=== PATIENT | female | born 1985 | race Caucasian/White ===

== ENCOUNTER 2022-05-22 21:40 | Emergency (ER) | payer OTHER, BC ==
[2022-05-22 22:13] VITALS: BP 128/78; PULSE 73; RESP 18; TEMP 98.7; BMI 32.8
== END 2022-05-22 22:16 | disposition home or self-care (01) ==
LOC: FER 21:40
DX: S61.230A Puncture wound without foreign body of right index finger without damage to nail, initial encounter (principal); W46.1XXA Contact with contaminated hypodermic needle, initial encounter
CPT/HCPCS: 99281-25

== ENCOUNTER 2022-09-22 02:19 | Emergency (ER) | payer BC, OTHER ==
[2022-09-22] MEDS ORDERED: ONDANSETRON 4 MG/2 ML VIAL IVPB ONE (02:22)
[2022-09-22] MEDS ORDERED: SODIUM CHLORIDE 0.9% 500 ML INFUS.BAG IV ONE (02:22)
[2022-09-22 02:23] VITALS: BP 136/99; PULSE 121; RESP 18; TEMP 98.9; BMI 35.4
[2022-09-22] MEDS ORDERED: ONDANSETRON 4 MG/2 ML VIAL ONE (02:39)
== END 2022-09-22 05:45 | disposition home or self-care (01) ==
LOC: FER 02:19
PROC: 3E033GC Introduction of Other Therapeutic Substance into Peripheral Vein, Percutaneous Approach (ICD-10-PCS; principal; 2022-09-22)
DX: A09 Infectious gastroenteritis and colitis, unspecified (principal)
CPT/HCPCS: 0241U-QW; 99284-25

== ENCOUNTER 2023-11-08 21:20 | Emergency (ER) | payer BC ==
[2023-11-08 21:38] VITALS: TEMP 98; BMI 30.9
[2023-11-08] MEDS ORDERED: FAMOTIDINE 20 MG/50 ML IVPB 20 MG/50 ML MG IVPB ONE (21:38)
[2023-11-08] MEDS ORDERED: SODIUM CHLORIDE 0.9% 500 ML INFUS.BAG IV ONE (21:39)
[2023-11-08] MEDS ORDERED: LORazepam 2 MG/ML SDV VIAL IVPUSH ONE (21:46)
[2023-11-08] MEDS ORDERED: DEXAMETHASONE SOD PHOSPHATE 10 MG/1 ML VIAL IM ONE (22:13)
[2023-11-08 23:13] VITALS: BP 113/78; PULSE 108; RESP 18
== END 2023-11-08 23:41 | disposition home or self-care (01) ==
LOC: JER 21:20
PROC: 3E033GC Introduction of Other Therapeutic Substance into Peripheral Vein, Percutaneous Approach (ICD-10-PCS; principal; 2023-11-08)
PROC: 3E033GC Introduction of Other Therapeutic Substance into Peripheral Vein, Percutaneous Approach (ICD-10-PCS; 2023-11-08)
PROC: 3E033GC Introduction of Other Therapeutic Substance into Peripheral Vein, Percutaneous Approach (ICD-10-PCS; 2023-11-08)
PROC: 3E023GC Introduction of Other Therapeutic Substance into Muscle, Percutaneous Approach (ICD-10-PCS; 2023-11-08)
DX: R21 Rash and other nonspecific skin eruption (principal); R23.2 Flushing; R11.0 Nausea; R19.7 Diarrhea, unspecified; T78.40XA Allergy, unspecified, initial encounter
CPT/HCPCS: 93005; 93010; 99284-25; J1100